=== PATIENT | female | born 1945 | race Caucasian/White ===

== ENCOUNTER 2023-05-06 13:15 | Outpatient (RCR) | payer MEDICARE, OTHER, SELFPAY ==
--- NOTE | 2023-02-08 15:35 | OPREHPOC ---
Outpatient Therapy Plan of Care This is a Multidisciplinary Plan of Care that may contain components documented by all disciplines (PT, OT, and ST.) PT Problem 1 PT Problem #1 Knowledge Deficit PT Goal 1 Goal Pt to be IND with issued HEP Target Visit 8 PT Problem 2 PT Problem #2 Pain PT Goal 1 Goal Pt to report pain no greater than 3/10 in the last week. Target Visit 8 PT Goal 2 Goal Pt to report 75% improvement in overall symptoms. Target Visit 8 PT Problem 3 PT Problem #3 Impaired Strength PT Goal 1 Goal Pt to improve LLE strength equal to RLE. Target Visit 8 PT Goal 2 Goal Pt to improve 5xSTS time from 30s to 15s without UE support Target Visit 8 PT Problem 4 PT Problem #4 Impaired Gait PT Goal 1 Goal Pt to improve 2 min walk distance from 123ft to 250ft. Target Visit 8 PT Goal 2 Goal Pt to be able to ambulate on level surface without AD. Target Visit 8
--- NOTE | 2023-02-08 15:35 | PTOPEVAL1 ---
Assessment and note entered by Harvey Tolentino, PT, DPT Evaluation Information Assessment Status Evaluation Diagnosis falls with L femur fx s/p pinning Onset 01/23/23 Subjective Information Pt states she had a fall on 01/22 while working on yard work and resulted in a L femur fracture. She had pins placed on 01/23/23, she currently WBAT with a walker. Pt gets increased pain, up to 8/10 with prolonged WB. She is IND at baseline without a device. She enjoys cooking, cleaning, volunteering, and going to the [facility]. Reported Pain Level Pain Score 0: Self Report Assessment PT Clinical Summary Ayah presents to therapy today for her initial evaluation following a fall with L hip fracture and pinning on 01/23/23. Today she demonstrates decreased hip strength, gait deviations, and decreased functional mobility consistent with her diagnosis. Skilled therapy services are indicated to address the deficits noted above, to manage pain , and to return to PLOF of IND. Plan of Care Interventions Electrical Stimulation,Gait Training,Hot Pack/Cold Pack,Intermittent Compression,Manual Therapy, Neuro Re-education,Patient/Caregiver Educati, Therapeutic Activities,Therapeutic Exercise PT Services Indicated Yes Treatment Frequency and 2x/wk for 8 visits Duration These treatments will address the objective and functional deficits as defined above. The patient will be advanced safely and appropriately in order for the patient to progress towards his/her prior level of function. Additional exercises will be introduced and as well as a comprehensive home exercise program upon discharge, if needed, ?to ensure carryover of functional gains achieved in the clinic. This treatment plan has been reviewed and agreement upon by the patient.
--- NOTE | 2023-03-08 11:57 | PTOPPROG ---
Assessment and note entered by Harvey Tolentino, PT, DPT Evaluation Information Assessment Status Progress Diagnosis falls with L femur fx s/p pinning Onset 01/23/23 Subjective Information Pt states she is progressing well. She states she is still using Tramadol and Tylenol twice a day. She states she is still battling with pain and swelling in the knee. She continues to ice and elevate her knee daily. She has been able to progress to a cane within the last week. Assessment PT Clinical Summary Ayah presents to therapy today for her progress report following 9 visits of skilled therapy to treat a L hip fracture and pinning on 01/23/23. Today she demonstrates improving L hip and knee strength, improve edema measurements, improved gait speed, and decreased pain. She continues to still have limited strength and functional ROM compared to her R side. She also continues to have persistent swelling, gait deviations, and excessive L knee valgus with functional movements. Continuation of skilled therapy services are indicated to address the deficits noted above, to manage pain, and to return to PLOF of IND. LEFS: 45/80 Plan of Care Interventions Electrical Stimulation,Gait Training,Hot Pack/Cold Pack,Intermittent Compression,Manual Therapy, Neuro Re-education,Patient/Caregiver Educati, Therapeutic Activities,Therapeutic Exercise PT Services Indicated Yes Treatment Frequency and 2x/wk for 8 visits Duration These treatments will address the objective and functional deficits as defined above. The patient will be advanced safely and appropriately in order for the patient to progress towards his/her prior level of function. Additional exercises will be introduced and as well as a comprehensive home exercise program upon discharge, if needed, ?to ensure carryover of functional gains achieved in the clinic. This treatment plan has been reviewed and agreement upon by the patient.
--- NOTE | 2023-03-14 16:00 | PCPTNOTE ---
Patient reports she cannot make appointment due to taking to appointment.
--- NOTE | 2023-04-05 11:56 | PTOPPROG ---
Assessment and note entered by Harvey Tolentino, PT, DPT Evaluation Information Assessment Status Progress Diagnosis falls with L femur fx s/p pinning Onset 01/23/23 Subjective Information Pt states she followed up with her ortho about her knee weeping and they said they were not concerned about the coloration at this time. She states she still get pain up to 8-9/10 when walking first thing in the morning and when she walks without shoes. She states she still feels like she has taken a step back from 2 weeks ago. Assessment PT Clinical Summary Ayah presents to therapy today for her progress report following 16 visits of skilled therapy to treat a L hip fracture and pinning on 01/23/23. Today she demonstrates slow progress compared to her last assessment. She continues to struggle with edema controlling limited her L knee ROM into extension. She continues to still have limited strength and functional ROM compared to her R side . She also continues to have persistent swelling, gait deviations, and excessive L knee valgus with functional movements. Continuation of skilled therapy services are indicated to address the deficits noted above, to manage pain, and to return to PLOF of IND. LEFS: 45/80 Plan of Care Interventions Electrical Stimulation,Gait Training,Hot Pack/Cold Pack,Intermittent Compression,Manual Therapy, Neuro Re-education,Patient/Caregiver Educati, Therapeutic Activities,Therapeutic Exercise PT Services Indicated Yes Treatment Frequency and 2x/wk for 8 visits Duration These treatments will address the objective and functional deficits as defined above. The patient will be advanced safely and appropriately in order for the patient to progress towards his/her prior level of function. Additional exercises will be introduced and as well as a comprehensive home exercise program upon discharge, if needed, ?to ensure carryover of functional gains achieved in the clinic. This treatment plan has been reviewed and agreement upon by the patient.
--- NOTE | 2023-05-03 13:34 | PTOPPROG ---
Assessment and note entered by Harvey Tolentino, PT, DPT Evaluation Information Assessment Status Progress Diagnosis falls with L femur fx s/p pinning Onset 01/23/23 Subjective Information Pt states she is really feeling great. She states pain has been really manageable, 5/10 at worst, but only for a moment. She states she is still having difficultly with stairs and continues to use the cane when walking long distances and with uneven ground. Pt states she saw an ortho, who said her option was to do a total knee replacement whenever she is ready. Assessment PT Clinical Summary Ayah presents to therapy today for her progress report following 23 visits of skilled therapy to treat a L femur fracture and pinning on 01/23/23. Today she demonstrates improved L hip and knee strength but this is still decreased from the R side. She has improved her gait speed but still requires an AD when walking for long distances and uneven surfaces. She is making good progress towards her therapy goals but is still missing functional mobility compared to her baseline. Continuation of skilled therapy services are indicated to address the deficits noted above, to manage pain, and to return to PLOF of IND. Plan of Care Interventions Electrical Stimulation,Gait Training,Hot Pack/Cold Pack,Intermittent Compression,Manual Therapy, Neuro Re-education,Patient/Caregiver Educati, Therapeutic Activities,Therapeutic Exercise PT Services Indicated Yes Treatment Frequency and 1-2x/wk for 8 visits Duration These treatments will address the objective and functional deficits as defined above. The patient will be advanced safely and appropriately in order for the patient to progress towards his/her prior level of function. Additional exercises will be introduced and as well as a comprehensive home exercise program upon discharge, if needed, ?to ensure carryover of functional gains achieved in the clinic. This treatment plan has been reviewed and agreement upon by the patient.
--- NOTE | 2023-05-13 09:57 | PCPTNOTE ---
This treatment is being continued on visit number [id number]. Please see documentation on both accounts to view progress. Completed interventions, outcomes, and problems have been marked as Inactive to facilitate the copying of the Care plan routine for recurring accounts.
== END 2023-05-09 12:42 | disposition still patient (30) ==
LOC: ANHGOSHPT 13:15
DX: S72.92XD Unspecified fracture of left femur, subsequent encounter for closed fracture with routine healing (principal); W19.XXXD Unspecified fall, subsequent encounter
CPT/HCPCS: 97016; 97110; 97112; 97140; 97161; 97530; 97750

== ENCOUNTER 2023-07-03 14:30 | Outpatient (RCR) | payer MEDICARE, OTHER, SELFPAY ==
--- NOTE | 2023-05-13 09:55 | PCPTNOTE ---
The treatment documented on this account is a continuation of the treatment documented on visit number [id number]. Please see documentation on both accounts to view progress. The Plan of Care has been transitioned and updated within the new V#. I have addressed and agree with the discipline specific Problems, Interventions, and Goals for the current certification period. Completed interventions, outcomes, and problems have been marked as Inactive to facilitate the copying of the Care plan routine for recurring accounts.
--- NOTE | 2023-05-31 12:32 | PTOPPROG ---
Assessment and note entered by Harvey Tolentino, PT, DPT Evaluation Information Assessment Status Progress Diagnosis L distal femur fracture Subjective Information Pt states things feel like overall things are going really well. She states getting moving first thing in the morning is difficult and after 8pm her leg is really tired and a bit achy and she starts to depend on the cane. She states she is progressing well, just slower than she would like. Pt states she would still like to get better at stairs and improving her walking speed. Assessment PT Clinical Summary Ayah presents to therapy today for her progress report following 29 visits of skilled therapy to treat a L femur fracture and pinning on 01/23/23. Today she demonstrates improved L hip and knee strength but this is still decreased from the R side. She has progressed to no needing a cane for a majority of her ambulation throughout the day. She is making good progress towards her therapy goals but is still missing functional mobility compared to her baseline. Her greatest deficits are her decreased gait speed and unsteadiness on stairs. Continuation of skilled therapy services are indicated to address the deficits noted above, to manage pain, and to return to PLOF of IND. Plan of Care Interventions Electrical Stimulation,Gait Training,Hot Pack/Cold Pack,Manual Therapy,Neuro Re-education,Patient/ Caregiver Educati,Therapeutic Activities, Therapeutic Exercise PT Services Indicated Yes Treatment Frequency and 2x/wk for 10 visits Duration These treatments will address the objective and functional deficits as defined above. The patient will be advanced safely and appropriately in order for the patient to progress towards his/her prior level of function. Additional exercises will be introduced and as well as a comprehensive home exercise program upon discharge, if needed, ?to ensure carryover of functional gains achieved in the clinic. This treatment plan has been reviewed and agreement upon by the patient.
--- NOTE | 2023-06-21 13:54 | PCPTNOTE ---
Patient canceled this date due to her being in ER.
--- NOTE | 2023-07-03 15:35 | PTOPDC ---
Assessment and note entered by Harvey Tolentino, PT, DPT Evaluation Information Assessment Status discharge Diagnosis L distal femur fracture Subjective Information Pt states she saw her surgeon and they talked about needing a TKA to realign her knee. Her and her surgeon both agree that her pain is limited at this time d/t alignment. Pt states overall she is feeling great today. Reported Pain Level Pain Score 0: Self Report Assessment PT Clinical Summary Ayah presents to therapy today for her progress report following 36 visits of skilled therapy to treat a L femur fracture and pinning on 01/23/23. Today she demonstrates slow progression of her gait, pain reports, and hip and knee strength. She has an ortho consult coming up soon and will likely get a knee replacement. Education given to pt to continue HEP and her strengthening routine. D/t limited progress and potential of TKA, it was recommended that pt d/c therapy now until further treatment is done.
== END 2023-07-04 10:33 | disposition home or self-care (01) ==
LOC: ANHGOSHPT 14:30
DX: S72.92XD Unspecified fracture of left femur, subsequent encounter for closed fracture with routine healing (principal); W19.XXXD Unspecified fall, subsequent encounter
CPT/HCPCS: 97016; 97110; 97112; 97530; 99199

== ENCOUNTER 2023-11-04 13:15 | Outpatient (RCR) | payer MEDICARE, OTHER, SELFPAY ==
--- NOTE | 2023-08-28 11:07 | OPREHPOC ---
Outpatient Therapy Plan of Care This is a Multidisciplinary Plan of Care that may contain components documented by all disciplines (PT, OT, and ST.) PT Problem 1 PT Problem #1 Knowledge Deficit PT Goal 1 Goal 1. Patient will perform independent HEP Target Visit 3 PT Problem 2 PT Problem #2 Pain PT Goal 1 Goal 1. Patient able to do all ADL's with knee pain no higher than 3/10 Target Visit 10 PT Problem 3 PT Problem #3 Impaired Gait PT Goal 1 Goal 1. Patient will ambulate at least 350 feet on the 2 minute walk test without cane Target Visit 10 PT Problem 4 PT Problem #4 Impaired Range of Motion PT Goal 1 Goal 1. Improve left flexion to 135 degrees for stair navigation 2. Improve left flexion to 0 for normalized gait pattern PT Problem 5 PT Problem #5 Edema PT Goal 1 Goal 1. Left knee will be within 2 cm of right knee at superior patellar pole Target Visit 10
--- NOTE | 2023-08-28 11:07 | PTOPEVAL1 ---
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 No home health therapy . Pt is currently ambulating with a quad cane. Highest pain in last week 09/17 and lowest 03/20. Pt is able to do some light activities at home. Takes stairs very slowly one at a time. Reports she is generally slower with all ADL's. Pt is driving. Has not yet gone out in her yard or navigated any kind of uneven surface. Pt lives alone, has family close by. Pt's original fall was in January 2023 where she shattered the distal end of her femur. No cane use prior to fall, but was using one before TKA. Returns to [place] on September 09. Patient goal: get rid of cane, be able to walk at a normal pace Reported Pain Level Pain Score 1: Self Report Assessment PT Clinical Summary The patient is presenting to skilled therapy s/p L TKA on 08/21/23 following a previous femur fracture in 2022. She presents with decreased knee range of motion, decreased strength, and gait impairments which are contributing to her current cane use and pain and difficulty with typical activities. She will highly benefit from therapy to address her impairments in order to reduce pain and restore function. LEFS= 57.5% dysfunction. Plan of Care Interventions Electrical Stimulation,Gait Training,Hot Pack/Cold Pack,Intermittent Compression,Manual Therapy, Neuro Re-education,Patient/Caregiver Education, Therapeutic Activities,Therapeutic Exercise PT Services Indicated Yes Treatment Frequency and 2 times a week for 10 visits Duration These treatments will address the objective and functional deficits as defined above. The patient will be advanced safely and appropriately in order for the patient to progress towards his/her prior level of function. Additional exercises will be introduced and as well as a comprehensive home exercise program upon discharge, if needed, ?to ensure carryover of functional gains achieved in the clinic. This treatment plan has been reviewed and agreement upon by the patient.
--- NOTE | 2023-10-02 12:01 | OPREHPOC ---
Outpatient Therapy Plan of Care This is a Multidisciplinary Plan of Care that may contain components documented by all disciplines (PT, OT, and ST.) PT Problem 1 PT Problem #1 Knowledge Deficit PT Goal 1 Goal 1. Patient will perform independent HEP Target Visit 3 Progress Met PT Problem 2 PT Problem #2 Pain PT Goal 1 Goal 1. Patient able to do all ADL's with knee pain no higher than 3/10 10/02/23 1. 4/10 highest Target Visit 18 Progress Partially Met PT Problem 3 PT Problem #3 Impaired Gait PT Goal 1 Goal 1. Patient will ambulate at least 350 feet on the 2 minute walk test without cane Target Visit 10 Progress Met PT Problem 4 PT Problem #4 Impaired Range of Motion PT Goal 1 Goal 1. Improve left flexion to 135 degrees for stair navigation 2. Improve left flexion to 0 for normalized gait pattern 10/02/23 1. 125 degrees 2. met Target Visit 18 Progress Partially Met PT Problem 5 PT Problem #5 Edema PT Goal 1 Goal 1. Left knee will be within 2 cm of right knee at superior patellar pole 10/02/23 1. within 4 cm Target Visit 18 Progress Partially Met
--- NOTE | 2023-10-02 12:02 | PTOPPROG ---
Assessment and note entered by Adwoa Cortez DPT Evaluation Information Assessment Status Progress ICD-10 Condition Codes (PT) Pain in left knee M25.562 Subjective Information Highest pain recently 4/10, lowest 0/10. Does not have pain daily any more. Still some stiffness. Reports she is now doing steps fairly well and is doing most of her typical activities. Continues to notice some weakness in that leg. Walked at a park the other day without her cane, has not really used it for about 2 weeks. Returns to [facility] on October 14. Assessment PT Clinical Summary The patient has made excellent progress in therapy . She demonstrates improved knee range of motion ( 0-125 actively), improved LE strength, improved gait speed and stair navigation. She also reports decreased pain and has not used her cane for several weeks. She is able to do more activities at home. Due to her progress but continued weakness and functional strength impairments with gait and stairs she will benefit from further therapy in order to full progress toward prior level of function. Plan of Care Interventions Electrical Stimulation,Gait Training,Hot Pack/Cold Pack,Intermittent Compression,Manual Therapy, Neuro Re-education,Patient/Caregiver Education, Therapeutic Activities,Therapeutic Exercise PT Services Indicated Yes Treatment Frequency and 2 times a week for 8 visits Duration These treatments will address the objective and functional deficits as defined above. The patient will be advanced safely and appropriately in order for the patient to progress towards his/her prior level of function. Additional exercises will be introduced and as well as a comprehensive home exercise program upon discharge, if needed, ?to ensure carryover of functional gains achieved in the clinic. This treatment plan has been reviewed and agreement upon by the patient.
--- NOTE | 2023-11-04 13:54 | OPREHPOC ---
Outpatient Therapy Plan of Care This is a Multidisciplinary Plan of Care that may contain components documented by all disciplines (PT, OT, and ST.) PT Problem 1 PT Problem #1 Knowledge Deficit PT Goal 1 Goal / Goal Update 1. Patient will perform independent HEP Target Visit 3 Progress Met PT Problem 2 PT Problem #2 Pain PT Goal 1 Goal / Goal Update 1. Patient able to do all ADL's with knee pain no higher than 3/10 Target Visit 18 Progress Met PT Problem 3 PT Problem #3 Impaired Gait PT Goal 1 Goal / Goal Update 1. Patient will ambulate at least 350 feet on the 2 minute walk test without cane Target Visit 10 Progress Met PT Problem 4 PT Problem #4 Impaired Range of Motion PT Goal 1 Goal / Goal Update 1. Improve left flexion to 135 degrees for stair navigation 2. Improve left flexion to 0 for normalized gait pattern 10/02/23 1. 125 degrees 2. met Target Visit 18 Progress Partially Met PT Problem 5 PT Problem #5 Edema PT Goal 1 Goal / Goal Update 1. Left knee will be within 2 cm of right knee at superior patellar pole 10/02/23 1. within 4 cm Target Visit 18 Progress Partially Met
--- NOTE | 2023-11-04 13:54 | PTOPDC ---
Assessment and note entered by Adwoa Cortez DPT Evaluation Information Assessment Status Discharge ICD-10 Condition Codes (PT) Pain in left knee M25.562 Subjective Information No real pain in the last week. States she has not been limited with her normal activities due to her knee. Reported Pain Level Pain Score 0: Self Report Assessment PT Clinical Summary The patient has made excellent progress in therapy . She reports no real pain recently and no functional limitations. She demonstrates improved range of motion, improved strength, and improved gait pattern. Due to her progress, discharge is recommended at this time. She has been educated in a thorough HEP and to follow up with MD and/or PT as needed. Plan of Care PT Services Indicated No
== END 2023-11-04 16:23 | disposition home or self-care (01) ==
LOC: ANHGOSHPT 13:15
DX: M17.32 Unilateral post-traumatic osteoarthritis, left knee (principal); M25.562 Pain in left knee
CPT/HCPCS: 97016; 97110; 97112; 97140; 97161; 97530